=== PATIENT | female | born 1980 | race Two or more races ===

== ENCOUNTER 2016-09-24 12:22 | Emergency (ER) | payer OTHER ==
[2016-09-24 12:33] VITALS: RESP 16; TEMP 98.1
[2016-09-24] MEDS ORDERED: ONDANSETRON 4 MG/2 ML VIAL IVP ONE (12:36)
[2016-09-24] MEDS ORDERED: HYDROmorphONE/DILAUDID 1 MG/ML SYR IVP ONE (12:36)
[2016-09-24] MEDS ORDERED: NS 1,000 ML IV ONE (12:36)
--- NOTE | 2016-09-24 12:39 | UCPHY ---
H & P <Charles Goldsmith - Last Filed: 09/24/16 15:48> Patient Type: New Chief Complaint Nursing Narrative: RLQ abdominal pain and nausea started today. Pt states she had intermittent R side pain x 2 weeks. Source: Patient Exam Limitations: No limitations - Personal History LMP (Females 10-55): IUD In Place Current Tetanus Diphtheria and Acellular Pertussis (TDAP): Yes Tetanus Vaccine Date: within 10 years - Medical/Surgical History Hx Asthma: No Hx Chronic Respiratory Disease: No Hx Diabetes: No Hx Cardiac Disease: No Hx Renal Disease: No Hx Cirrhosis: No Hx Alcoholism: No Hx HIV/AIDS: No Hx Splenectomy or Spleen Trauma: No Other PMH: Cholecystectomy, tonsillectomy, stomach ulcers, positive TB test- negative chest xray - Family History Significant Family History: No pertinent family hx - Social History Smoking Status: Never smoked Alcohol Use: Sober Drug Use: None <Escobar Cantrell - Last Filed: 09/25/16 16:07> Time Seen by Provider: 09/24/16 12:28 HPI/ROS: CHIEF COMPLAINT: Right lower quadrant pain HISTORY OF PRESENT ILLNESS: The patient is a 35-year-old female who comes to the Urgent Care complaining right lower quadrant pain radiates to her right flank and right groin and suprapubic region. No dysuria. Also mild nausea. She states that she has had the symptoms intermittently for the last 2 weeks but they have intensified today. No fever. She states that it hurts to have a bowel movement. No blood. Slightly loose stools. She had her last menstrual period yesterday but is not bleeding today. She states that they have been irregular because she stops 2 months ago. Initially states she thought that she might have just strained a muscle lifting weights. The pain is worse with movement or walking. REVIEW OF SYSTEMS: Constitutional: denies: chills, fever, recent illness, recent injury EENTM: denies: blurred vision, double vision, nose congestion Respiratory: denies: cough, shortness of breath Cardiac: denies: chest pain, irregular heart rate, lightheadedness, palpitations Gastrointestinal/Abdominal: See HPI Genitourinary: denies: dysuria, frequency, hematuria, pain Musculoskeletal: denies: joint pain, muscle pain Skin: denies: lesions, rash, jaundice, bruising Neurological: denies: headache, numbness, paresthesia, tingling, dizziness, weakness Hematologic/Lymphatic: denies: blood clots, easy bleeding, easy bruising Immunologic/allergic: denies: HIV/AIDS, transplant EXAM: GENERAL: Well-appearing, well-nourished and in no acute distress. HEAD: Atraumatic, normocephalic. EYES: Pupils equal round and reactive to light, extraocular movements intact, sclera anicteric, conjunctiva are normal. ENT: TMs normal, nares patent, oropharynx clear without exudates. Moist mucous membranes. NECK: Normal range of motion, supple without lymphadenopathy or JVD. LUNGS: Breath sounds clear to auscultation bilaterally and equal. No wheezes rales or rhonchi. HEART: Regular rate and rhythm without murmurs, rubs or gallops. ABDOMEN: Right lower quadrant pain, no tenderness. It radiates to flank and suprapubic region. BACK: No CVA tenderness, no spinal tenderness, step-offs or deformities EXTREMITIES: Normal range of motion, no pitting or edema. No clubbing or cyanosis. NEUROLOGICAL: Cranial nerves II through XII grossly intact. Normal speech, normal gait. 5/5 strength, normal movement in all extremities, normal sensation PSYCH: Normal mood, normal affect. SKIN: Warm, dry, normal turgor, no visible rashes or lesions. (Escobar Cantrell) Constitutional: Initial Vital Signs Temperature (C) 36.7 C 09/24/16 12:23 Heart Rate 75 09/24/16 12:23 Respiratory Rate 16 09/24/16 12:23 Blood Pressure 127/79 H 09/24/16 12:23 O2 Sat (%) 96 09/24/16 12:23 O2 Delivery Mode Room Air Allergies/Adverse Reactions: ibuprofen Allergy (Intermediate, Verified 09/24/16 12:33) Hives Home Medications: Medication Instructions Recorded Calcium 09/24/16 Docusate Sodium [Colace 100 MG (*)] 100 mg PO BID PRN #20 cap 09/24/16 Hydrocodone/APAP 5/325 [[place] 1 - 2 tab PO Q4PRN PRN #20 tab 09/24/16 5/325 (*)] Hydrocodone/APAP 5/325 [[place] 1 - 2 tab PO Q4PRN PRN #20 tab 09/24/16 5/325 (*)] Paragard 09/24/16 09/24/16 Vitamin C 09/24/16 Medical Decision Making - Diagnostics Imaging: Discussed imaging studies w/ call out operator Radiologist <Charles Goldsmith - Last Filed: 09/24/16 15:48> - Diagnostics Imaging: Discussed imaging studies w/ call out operator Radiologist <Escobar Cantrell - Last Filed: 09/25/16 16:07> ED Course/Re-evaluation: At 3:50 p.m. I re-evaluated the patient and discussed the sonogram findings- consistent with a ruptured ovarian cyst. Patient is comfortable at this time with for to 5/10 pain. We discussed analgesic options. Will try hydrocodone/Tylenol for her at home for pain control. Discussed the need to go the emergency department should she developed unbearable pain, significant lightheadedness fatigue or other concerns. On repeat exam the patient has mild right lower quadrant tenderness and appears clinically well. (Charles Goldsmith) We discussed the patient's CT and lab results. I suspect that she has a ruptured ovarian cyst. Will perform ultrasound to confirm in to rule out torsion. Patient's pain is currently under control. She declines further medications. Care transferred to Dr. Charles Goldsmith at shift change. (Escobar Cantrell) Differential Diagnosis: Partial list of the Differential diagnosis considered include but were not limited to; kidney stone, urinary tract infection, appendicitis, ovarian cyst and although unlikely based on the history and physical exam, I also considered colitis, sepsis, abscess. (Escobar Cantrell) - Data Points Laboratory Results: Laboratory Results 09/24/16 12:55 09/24/16 12:55 Medications Given: Discontinued Medications Hydromorphone HCl (Dilaudid) 0.5 mg IVP EDNOW ONE Stop: 09/24/16 12:37 Last Admin: 09/24/16 12:57 Dose: 0.5 mg Sodium Chloride (Ns) 1,000 mls @ 0 mls/hr IV ONCE ONE PRN Reason: Wide Open Stop: 09/24/16 12:37 Last Admin: 09/24/16 12:54 Dose: 1,000 mls Ondansetron HCl (Zofran) 4 mg IVP EDNOW ONE Stop: 09/24/16 12:37 Last Admin: 09/24/16 12:55 Dose: 4 mg Departure <Charles Goldsmith - Last Filed: 09/24/16 15:48> <Escobar Cantrell - Last Filed: 09/25/16 16:07> - Departure Disposition: Home, Routine, Self-Care Clinical Impression: Ruptured ovarian cyst Condition: Good Instructions: Ruptured Ovarian Cyst (ED) Additional Instructions: Diagnosis: Ruptured ovarian cyst Plan: Vicodin if needed for pain that does not respond to Tylenol. Stool softener while on Vicodin to prevent constipation No driving, alcohol work on Vicodin. Symptoms should gradually improve over the next 3-7 days. Limit activity until you feel improved. Follow up with Dr. Vicente-OBGYN physician for any ongoing symptoms despite treatment plan Go to the emergency department for any significant worsening despite the treatment plan Referrals: NONE *PRIMARY CARE P,. [Primary Care Provider] - As per Instructions Desi Vicente DO [Doctor of Osteopathy] - As per Instructions Prescriptions: Docusate Sodium [Colace 100 MG (*)] 100 mg PO BID PRN #20 cap PRN Reason: Constipation Hydrocodone/APAP 5/325 [[place] 5/325 (*)] 1 - 2 tab PO Q4PRN PRN #20 tab PRN Reason: Pain Hydrocodone/APAP 5/325 [[place] 5/325 (*)] 1 - 2 tab PO Q4PRN PRN #20 tab PRN Reason: Pain - PQRS PQRS Measurement: NA (Charles Goldsmith)
[2016-09-24 12:56] LABS: % IMMATURE GRANULYOCYTES 0.3 % (0.0-1.1); ABSOLUTE IMMATURE GRANULOCYTES 0.03 10^3/uL (0.00-0.10); ADD DIFF? NO; ADD MORPH? NO; ADD SCAN? NO; ATYPICAL LYMPHOCYTE FLAG 10 (0-99); FRAGMENT RBC FLAG 0 (0-99); HEMATOCRIT 41.1 % (38.0-47.0); HEMOGLOBIN 14.2 g/dL (12.6-16.3); LEFT SHIFT FLG 0 (0-99); LIPEMIA HEMOLYSIS FLAG 90 (0-99); MEAN CELL HEMOGLOBIN 31.4 pg (27.9-34.1); MEAN CELL HEMOGLOBIN CONCENTR. 34.5 g/dL (32.4-36.7); MEAN CELL VOLUME 90.9 fL (81.5-99.8); MEAN PLATELET VOLUME 9.3 fL (8.7-11.7); PLATELET CLUMPS FLAG 10 (0-99); PLATELET COUNT 281 10^3/uL (150-400); RED BLOOD CELL COUNT 4.52 10^6/uL (4.18-5.33); RED CELL DISTRIBUTION WIDTH 12.3 % (11.5-15.2)
[2016-09-24 13:08] LABS: CARBON DIOXIDE 24 mEq/l (22-31); CHLORIDE 101 mEq/L (97-110); SODIUM 142 mEq/L (134-144)
[2016-09-24 13:09] LABS: ALANINE AMINOTRANSFERASE 28 IU/L (9-52); ALBUMIN 4.4 g/dL (3.5-5.0); ALKALINE PHOSPHATASE 60 IU/L (38-126); ANION GAP 17 mEq/L (8-16); ASPARTATE AMINOTRANSFERASE 22 IU/L (14-46); BILIRUBIN,TOTAL 1.4 mg/dL (0.1-1.4); BILIRUBIN-CONJUGATED 0.2 mg/dL (0.0-0.5); BILIRUBIN-UNCONJUGATED 1.2 mg/dL (0.0-1.1); CALCIUM 9.5 mg/dL (8.5-10.4); CREATININE 0.7 mg/dL (0.6-1.0); GLOMERULAR FILTRATION RATE > 60; GLUCOSE 86 mg/dL (70-100); TOTAL PROTEIN 7.9 g/dL (6.3-8.2)
[2016-09-24 13:11] LABS: COLOR YELLOW; LEUKOCYTE ESTERASE,URINE NEGATIVE (NEGATIVE); NITRITE,URINE NEGATIVE (NEGATIVE); PH,URINE 6.5 (5.0-7.5)
[2016-09-24] MEDS ORDERED: IOPAMIDOL (ISOVUE-300) 100 ML BTL IV ONE (13:25)
[2016-09-24 16:22] VITALS: BP 94/57; PULSE 56; O2SAT 97
== END 2016-09-24 16:10 | disposition home or self-care (01) ==
LOC: CED 12:22
DX: N83.291 Other ovarian cyst, right side (principal)
CPT/HCPCS: 74177-PO; 76856-PO; 80048-PO; 80076-PO; 81003-PO; 83690-PO; 84703-PO; 85025-PO; 96361-PO; 96374-PO; 96375-PO; 99204-PO; G0463-PO; J1170; J2405; Q9967